=== PATIENT | male | born 1980 | race Caucasian/White ===

== ENCOUNTER 2017-03-06 10:42 | Inpatient (IN) | payer MEDICAID ==
[~2017-03-06] VITALS: Ht 170.2 cm; Wt 76.4 kg
[~2017-03-06 10:42] MED LIST: BENZ0.5T32 PO; LITH300C3 PO; RISP2 PO
[2017-03-06 11:33] VITALS: BP 146/80
[2017-03-06] MEDS ORDERED: LORazepam 2 MG/ML VIAL IM ONE (16:15)
[2017-03-06] MEDS ORDERED: DiphenhydrAMINE HCL 50 MG/ML VIAL IM ONE (16:15)
[2017-03-06] MEDS ORDERED: HALOPERIDOL LACTATE 5 MG/ML VIAL IM ONE (16:15)
[2017-03-06 16:47] VITALS: BP 116/68
[2017-03-07 06:40] VITALS: BP 107/64
[2017-03-07 08:05] LABS: BASOPHILS # (AUTO) 0.04 K/uL (0.00-0.20); BASOPHILS % (AUTO) 0.7 % (0.0-2.0); EOSINOPHILS # (AUTO) 0.28 K/uL (0.00-0.70); EOSINOPHILS % (AUTO) 5.12 % (1.0-6.0); HEMATOCRIT 45.8 % (41-53); HEMOGLOBIN 15.2 g/dL (13.5-17.5); LYMPHOCYTES % (AUTO) 35.7 % (22.0-44.0); MEAN CORPUSCULAR HEMOGLOBIN 30.6 pg (26.0-34.0); MEAN CORPUSCULAR HGB CONC 33.2 G/dL (31.0-37.0); MEAN CORPUSCULAR VOLUME 92 fL (80-100); MONOCYTES # (AUTO) 0.5 K/uL (0.1-1.0); MONOCYTES % (AUTO) 8.9 % (2.0-9.0); NEUTROPHILS # (AUTO) 2.7 K/uL (1.8-7.7); NEUTROPHILS % (AUTO) 49.6 % (40.0-70.0); PLATELET COUNT (AUTO) 288 K/uL (150-450); RED BLOOD CELL COUNT(AUTO) 4.97 MIL/uL (4.50-5.90); RED CELL DISTRIBUTION WIDTH 13.5 % (11.5-14.5); WHITE BLOOD COUNT (AUTO) 5.5 K/uL (4.5-11.0)
[2017-03-07 08:41] LABS: HEMOGLOBIN A1C 5.2 % (4.5-6.2)
[2017-03-07 08:48] VITALS: BP 107/63
[2017-03-07 08:48] LABS: ALANINE AMINOTRANSFERASE 73 U/L (12-78); ALBUMIN 4.1 g/dL (3.4-5.0); ANION GAP 7 mmol/L (8-16); ASPARTATE AMINOTRANSFERASE 59 U/L (15-37); BILIRUBIN,TOTAL 2.5 mg/dL (0.1-1.0); CALCIUM, TOTAL 9.4 mg/dL (8.8-10.5); CARBON DIOXIDE 30 mmol/L (22-29); CHLORIDE 103 mmol/L (98-107); CHOL/HDL RATIO 2.3 (4.2-7.3); CREATININE 1.11 mg/dL (0.60-1.30); GLOMERULAR FILTR. RATE CALC > 60 mL/min (>60); SODIUM SERUM 140 mmol/L (136-145); THYROID STIMULATING HORMONE 0.49 uIU/mL (0.36-3.74); TOTAL PROTEIN, SERUM 7.6 g/dL (6.4-8.2); UREA NITROGEN, BLOOD 20 mg/dL (7-18)
[2017-03-07] MEDS: ARIPiprazole 10 MG TABLET PO SCH (09:15)
[2017-03-07] MEDS: LORazepam 2 MG TABLET PO PRN ×2 (09:15→16:06)
[2017-03-07 16:00] VITALS: BP 129/68
[2017-03-07] MEDS: HALOPERIDOL 5 MG TABLET PO PRN (16:06)
[2017-03-08 06:07] VITALS: BP 104/69
[2017-03-08 08:00] VITALS: BP 113/71
[2017-03-08] MEDS: ARIPiprazole 10 MG TABLET PO SCH (10:07)
[2017-03-08] MEDS: LORazepam 2 MG TABLET PO PRN ×3 (10:07→20:27)
[2017-03-08 11:07] VITALS: BP 117/75
[2017-03-08 16:00] VITALS: BP 127/77
[2017-03-08] MEDS: HALOPERIDOL 5 MG TABLET PO PRN (16:08)
[2017-03-08] MEDS: ZOLPIDEM TARTRATE 10 MG TABLET PO PRN (20:27)
[2017-03-09 07:12] VITALS: BP 119/64
[2017-03-09 08:43] VITALS: BP 111/74
[2017-03-09] MEDS: ARIPiprazole 10 MG TABLET PO SCH (09:46)
[2017-03-09] MEDS: LORazepam 2 MG TABLET PO PRN ×2 (09:46→17:04)
[2017-03-09] MEDS: HALOPERIDOL 5 MG TABLET PO PRN ×2 (09:46→17:04)
[2017-03-09 16:34] VITALS: BP 142/90
[2017-03-10 06:57] VITALS: BP 126/73
[2017-03-10] MEDS: LORazepam 2 MG TABLET PO PRN ×2 (08:36→16:10)
[2017-03-10] MEDS: ARIPiprazole 10 MG TABLET PO SCH (08:36)
[2017-03-10 08:47] VITALS: BP 106/58
[2017-03-10 16:00] VITALS: BP_SYST 103; BP_SYST 131; BP_DIAS 60; BP_DIAS 67
[2017-03-10] MEDS: HALOPERIDOL 5 MG TABLET PO PRN (16:10)
[2017-03-11 06:44] VITALS: BP 110/62
[2017-03-11 08:12] VITALS: BP 116/60
[2017-03-11] MEDS: ARIPiprazole 10 MG TABLET PO SCH (08:35)
[2017-03-11 16:00] VITALS: BP 130/81
[2017-03-11] MEDS: ZOLPIDEM TARTRATE 10 MG TABLET PO PRN (21:58)
[2017-03-12 07:00] VITALS: BP 118/65
[2017-03-12] MEDS: LORazepam 2 MG TABLET PO PRN (08:59)
[2017-03-12] MEDS ORDERED: ARIPiprazole 15 MG TABLET PO SCH (09:00)
[2017-03-12 09:07] VITALS: BP 124/78
[2017-03-12] MEDS ORDERED: ARIP15TA3 PO (11:52)
== END 2017-03-12 12:45 | disposition home or self-care (01) | DRG 751 ==
LOC: B3A 11:36
PROVIDERS: ADMIT Psychiatry & Neurology Psychiatry; ATTEND Psychiatry & Neurology Psychiatry
DX: F29 Unspecified psychosis not due to a substance or known physiological condition (principal); R45.87 Impulsiveness; Z88.1 Allergy status to other antibiotic agents
CPT/HCPCS: 83036; 84439; 84443; J1200; J1630; J2060

== ENCOUNTER 2017-05-21 12:42 | Inpatient (IN) | payer MEDICAID ==
[~2017-05-21] VITALS: Ht 175.3 cm; Wt 73.0 kg
[~2017-05-21 12:42] MED LIST changes: +ARIP15TA2 PO; -BENZ0.5T32 PO; -LITH300C3 PO; -RISP2 PO
[2017-05-21 14:51] VITALS: BP 118/70
[2017-05-21] MEDS ORDERED: ZOLPIDEM TARTRATE 10 MG TABLET PO PRN (15:00)
[2017-05-21] MEDS ORDERED: LITH300C3 PO (15:27)
[2017-05-21] MEDS ORDERED: RISP.5 PO (15:27)
[2017-05-21] MEDS ORDERED: OLAN2.5T3 PO (15:27)
[2017-05-21 16:05] VITALS: BP 138/60
[2017-05-21] MEDS: LORazepam 2 MG TABLET PO PRN (17:01)
[2017-05-21] MEDS: HALOPERIDOL 5 MG TABLET PO PRN (17:01)
[2017-05-22 06:24] VITALS: BP 108/69
[2017-05-22 08:43] VITALS: BP 110/61
[2017-05-22] MEDS: LORazepam 2 MG TABLET PO PRN (09:12)
[2017-05-22] MEDS: ARIPiprazole 15 MG TABLET PO SCH (09:12)
[2017-05-22 09:14] LABS: BASOPHILS % (AUTO) 0.7 % (0.0-2.0); EOSINOPHILS % (AUTO) 7.1 % (1.0-6.0); HEMATOCRIT 43.9 % (41-53); HEMOGLOBIN 14.8 g/dL (13.5-17.5); LYMPHOCYTES # (AUTO) 2.2 K/uL (1.0-4.8); LYMPHOCYTES % (AUTO) 36.5 % (22.0-44.0); MEAN CORPUSCULAR HEMOGLOBIN 30.7 pg (26.0-34.0); MEAN CORPUSCULAR HGB CONC 33.7 G/dL (31.0-37.0); MEAN CORPUSCULAR VOLUME 91 fL (80-100); MONOCYTES # (AUTO) 0.3 K/uL (0.1-1.0); MONOCYTES % (AUTO) 4.3 % (2.0-9.0); NEUTROPHILS # (AUTO) 3.1 K/uL (1.8-7.7); NEUTROPHILS % (AUTO) 51.4 % (40.0-70.0); PLATELET COUNT (AUTO) 333 K/uL (150-450); RED BLOOD CELL COUNT(AUTO) 4.83 MIL/uL (4.50-5.90); RED CELL DISTRIBUTION WIDTH 13.6 % (11.5-14.5); WHITE BLOOD COUNT (AUTO) 6.1 K/uL (4.5-11.0)
[2017-05-22 09:30] LABS: APPEARANCE,URINE CLEAR (CLEAR); GLUCOSE, URINE (UA) NEGATIVE (NEGATIVE); KETONES,URINE NEGATIVE (NEGATIVE); LEUKOCYTE ESTERASE ,URINE NEGATIVE (NEGATIVE); OCCULT BLOOD,URINE NEGATIVE (NEGATIVE); PH,URINE 5.5 (5.0-8.0); PROTEIN,URINE NEGATIVE (NEGATIVE)
[2017-05-22 09:33] LABS: ADD UA MICROSCOPIC NO
[2017-05-22 09:37] LABS: ALANINE AMINOTRANSFERASE 48 U/L (12-78); ALBUMIN 3.6 g/dL (3.4-5.0); ANION GAP 7 mmol/L (8-16); ASPARTATE AMINOTRANSFERASE 20 U/L (15-37); BILIRUBIN,TOTAL 0.6 mg/dL (0.1-1.0); CALCIUM, TOTAL 8.8 mg/dL (8.8-10.5); CARBON DIOXIDE 28 mmol/L (22-29); CHLORIDE 105 mmol/L (98-107); CHOL/HDL RATIO 2.2 (4.2-7.3); GLOMERULAR FILTR. RATE CALC > 60 mL/min (>60); POTASSIUM 3.8 mmol/L (3.5-5.1); SODIUM SERUM 140 mmol/L (136-145); THYROID STIMULATING HORMONE 0.74 uIU/mL (0.36-3.74); UREA NITROGEN, BLOOD 11 mg/dL (7-18)
[2017-05-22 09:40] LABS: HEMOGLOBIN A1C 4.3 % (4.5-6.2)
[2017-05-22 16:00] VITALS: BP 127/86
[2017-05-23 06:49] VITALS: BP 122/81
[2017-05-23 07:55] LABS: HEPATITIS Bs ANTIGEN SCREEN P Negative (Negative); HEPATITIS C AB SCREEN >11.0 s/co ratio (0.0-0.9)
[2017-05-23 08:41] VITALS: BP 120/72
[2017-05-23] MEDS: ARIPiprazole 15 MG TABLET PO SCH (08:56)
[2017-05-23] MEDS: LORazepam 2 MG TABLET PO PRN ×2 (08:56→16:50)
[2017-05-23 16:33] VITALS: BP 114/63
[2017-05-23] MEDS: HALOPERIDOL 5 MG TABLET PO PRN (16:50)
[2017-05-24 06:40] VITALS: BP 105/65
[2017-05-24] MEDS: ARIPiprazole 15 MG TABLET PO SCH (08:39)
[2017-05-24] MEDS: LORazepam 2 MG TABLET PO PRN ×2 (08:40→16:39)
[2017-05-24] MEDS ORDERED: ACETAMINOPHEN 325 MG TABLET PO PRN (08:45)
[2017-05-24 09:43] VITALS: BP 103/54
[2017-05-24] MEDS: IBUPROFEN 600 MG TABLET PO PRN (10:54)
[2017-05-24 16:25] VITALS: BP 121/77
[2017-05-24] MEDS: HALOPERIDOL 5 MG TABLET PO PRN (16:39)
[2017-05-25 06:25] VITALS: BP 102/68
[2017-05-25 08:37] VITALS: BP 108/58
[2017-05-25] MEDS: ARIPiprazole 15 MG TABLET PO SCH (08:48)
[2017-05-25] MEDS: LORazepam 2 MG TABLET PO PRN ×2 (08:49→15:56)
[2017-05-25] MEDS: HALOPERIDOL 5 MG TABLET PO PRN (15:56)
[2017-05-25 16:13] VITALS: BP 124/69
[2017-05-25] MEDS: IBUPROFEN 600 MG TABLET PO PRN (16:49)
[2017-05-26] MEDS: LORazepam 2 MG TABLET PO PRN ×2 (08:51→16:07)
[2017-05-26] MEDS: ARIPiprazole 15 MG TABLET PO SCH (08:51)
[2017-05-26 08:55] VITALS: BP 105/62
[2017-05-26 16:00] VITALS: BP 113/71
[2017-05-26] MEDS: HALOPERIDOL 5 MG TABLET PO PRN (16:07)
[2017-05-27 06:15] VITALS: BP 118/75
[2017-05-27 08:23] VITALS: BP 105/63
[2017-05-27] MEDS: LORazepam 2 MG TABLET PO PRN ×2 (08:49→16:15)
[2017-05-27] MEDS: ARIPiprazole 15 MG TABLET PO SCH (09:08)
[2017-05-27] MEDS: IBUPROFEN 600 MG TABLET PO PRN (14:16)
[2017-05-27 16:00] VITALS: BP 115/78
[2017-05-27] MEDS: HALOPERIDOL 5 MG TABLET PO PRN (16:15)
[2017-05-28 00:34] VITALS: BP 101/62
[2017-05-28 08:30] VITALS: BP 106/68
[2017-05-28] MEDS: ARIPiprazole 15 MG TABLET PO SCH (08:30)
[2017-05-28] MEDS: LORazepam 2 MG TABLET PO PRN (08:39)
[2017-05-28] MEDS: HALOPERIDOL 5 MG TABLET PO PRN (08:39)
[2017-05-28] MEDS: IBUPROFEN 600 MG TABLET PO PRN (09:51)
== END 2017-05-28 12:49 | disposition home or self-care (01) | DRG 750 ==
LOC: B3A 14:59
PROVIDERS: ADMIT Psychiatry & Neurology Child & Adolescent Psychiatry; ATTEND Psychiatry & Neurology Child & Adolescent Psychiatry
DX: F25.1 Schizoaffective disorder, depressive type (principal); R45.851 Suicidal ideations; Z59.0 Homelessness; F12.90 Cannabis use, unspecified, uncomplicated; E78.5 Hyperlipidemia, unspecified; Z72.89 Other problems related to lifestyle
CPT/HCPCS: 80074; 83036; 84439; 84443

== ENCOUNTER 2017-06-25 13:37 | Emergency (ER) | payer MEDICAID ==
[~2017-06-25] VITALS: Ht 175.3 cm; Wt 68.0 kg
[2017-06-25] MEDS ORDERED: LITH300C3 PO (13:56)
[2017-06-25 15:13] LABS: BASOPHILS # (AUTO) 0.24 K/uL (0.00-0.20); BASOPHILS % (AUTO) 3.1 % (0.0-2.0); EOSINOPHILS # (AUTO) 0.13 K/uL (0.00-0.70); EOSINOPHILS % (AUTO) 1.79 % (1.0-6.0); HEMATOCRIT 44.8 % (41-53); HEMOGLOBIN 15.2 g/dL (13.5-17.5); LYMPHOCYTES # (AUTO) 2.4 K/uL (1.0-4.8); LYMPHOCYTES % (AUTO) 31.7 % (22.0-44.0); MEAN CORPUSCULAR HEMOGLOBIN 30.6 pg (26.0-34.0); MEAN CORPUSCULAR VOLUME 90 fL (80-100); MONOCYTES # (AUTO) 0.5 K/uL (0.1-1.0); NEUTROPHILS # (AUTO) 4.2 K/uL (1.8-7.7); NEUTROPHILS % (AUTO) 56.4 % (40.0-70.0); PLATELET COUNT (AUTO) 354 K/uL (150-450); RED BLOOD CELL COUNT(AUTO) 4.99 MIL/uL (4.50-5.90); RED CELL DISTRIBUTION WIDTH 13.1 % (11.5-14.5)
[2017-06-25 15:57] LABS: ANION GAP 11 mmol/L (8-16); CALCIUM, TOTAL 9.6 mg/dL (8.8-10.5); CARBON DIOXIDE 26 mmol/L (22-29); CHLORIDE 103 mmol/L (98-107); CREATININE 1.06 mg/dL (0.60-1.30); GLOMERULAR FILTR. RATE CALC > 60 mL/min (>60); GLUCOSE,RANDOM 81 mg/dL (70-110); POTASSIUM 4.3 mmol/L (3.5-5.1); SODIUM SERUM 140 mmol/L (136-145); UREA NITROGEN, BLOOD 11 mg/dL (7-18)
[2017-06-25 16:42] VITALS: BP 120/70
[2017-06-25] MEDS: HALOPERIDOL 5 MG TABLET PO ONE ×2 (18:20→18:29)
[2017-06-25] MEDS: LORazepam 1 MG TABLET PO ONE ×2 (18:21→18:28)
== END 2017-06-25 18:58 | disposition home or self-care (01) ==
LOC: EMS 13:39
DX: M79.632 Pain in left forearm (principal); F20.9 Schizophrenia, unspecified; F31.9 Bipolar disorder, unspecified; F17.210 Nicotine dependence, cigarettes, uncomplicated
CPT/HCPCS: 36415; 73090; 80048; 85025; 99285; G0480

== ENCOUNTER 2018-11-29 14:28 | Inpatient (IN) | payer MEDICAID ==
[~2018-11-29] VITALS: Ht 177.8 cm; Wt 87.5 kg
[~2018-11-29 14:28] MED LIST changes: +LITH300C3 PO
[2018-11-29] MEDS ORDERED: ZOLPIDEM TARTRATE 10 MG TABLET PO PRN (17:45)
[2018-11-29] MEDS ORDERED: TUBERCULIN, PURIFIED PROTEIN DERIVATIVE 5 TU/0.1 ML SYRINGE ID ONE (17:45)
[2018-11-29] MEDS ORDERED: MAGNESIUM HYDROXIDE SUSPENSION 30 ML UDCUP PO PRN (17:45)
[2018-11-29] MEDS ORDERED: ACETAMINOPHEN 325 MG TABLET PO PRN (17:45)
[2018-11-29] MEDS ORDERED: MAG HYDROX/AL HYDROX/SIMETH ES 30 ML SUSPENSION UDCUP PO PRN (17:45)
[2018-11-29] MEDS ORDERED: PROMETHAZINE HCL 25 MG TABLET PO PRN (17:45)
[2018-11-29] MEDS ORDERED: HydrOXYzine PAMOATE 50 MG CAPSULE PO PRN (17:45)
[2018-11-29] MEDS ORDERED: LOPERAMIDE HCL 2 MG CAPSULE PO PRN (17:45)
[2018-11-29] MEDS ORDERED: GuaiFENesin/D-METHORPHAN [SUGAR-FREE] 200-20MG/10 ML SYRUP UDCUP PO PRN (17:45)
[2018-11-29] MEDS ORDERED: DIVALPROEX SODIUM 500 MG ER TABLET PO SCH (21:00)
[2018-11-29] MEDS: THIAMINE HCL 100 MG TABLET PO SCH (21:01)
[2018-11-29] MEDS: OLANZapine 5 MG RAPDIS TABLET PO SCH (21:01)
[2018-11-29 21:51] VITALS: BP 131/77
[2018-11-30 06:40] VITALS: BP 109/62
[2018-11-30 08:28] VITALS: BP 120/63
[2018-11-30 08:52] LABS: BASOPHILS % (AUTO) 0.6 % (0.0-2.0); EOSINOPHILS % (AUTO) 4.7 % (1.0-6.0); HEMATOCRIT 41.6 % (41-53); HEMOGLOBIN 14.1 g/dL (13.5-17.5); LYMPHOCYTES # (AUTO) 2.8 K/uL (1.0-4.8); LYMPHOCYTES % (AUTO) 52.8 % (22.0-44.0); MEAN CORPUSCULAR HEMOGLOBIN 30.6 pg (26.0-34.0); MEAN CORPUSCULAR HGB CONC 33.8 G/dL (31.0-37.0); MEAN CORPUSCULAR VOLUME 90 fL (80-100); MONOCYTES # (AUTO) 0.4 K/uL (0.1-1.0); NEUTROPHILS # (AUTO) 1.8 K/uL (1.8-7.7); NEUTROPHILS % (AUTO) 33.9 % (40.0-70.0); PLATELET COUNT (AUTO) 412 K/uL (150-450); RED CELL DISTRIBUTION WIDTH 13.1 % (11.5-14.5)
[2018-11-30] MEDS: NALTREXONE HCL 50 MG TABLET PO SCH (08:57)
[2018-11-30] MEDS: FOLIC ACID 1 MG TABLET PO SCH (08:57)
[2018-11-30] MEDS: MULTIVITAMINS WITH MINERALS, THERAPEUTIC TABLET PO SCH (08:57)
[2018-11-30] MEDS: THIAMINE HCL 100 MG TABLET PO SCH ×2 (08:58→16:45)
[2018-11-30 09:11] LABS: HEMOGLOBIN A1C 5.2 % (4.5-6.2)
[2018-11-30 09:17] LABS: ALANINE AMINOTRANSFERASE 102 U/L (12-78); ALBUMIN 2.9 g/dL (3.4-5.0); ALKALINE PHOSPHATASE 71 U/L (46-116); ANION GAP 11 mmol/L (8-16); ASPARTATE AMINOTRANSFERASE 91 U/L (15-37); BILIRUBIN,TOTAL 0.4 mg/dL (0.1-1.0); CARBON DIOXIDE 24 mmol/L (22-29); CHLORIDE 108 mmol/L (98-107); CHOL/HDL RATIO 2.8 (4.2-7.3); CHOLESTEROL 169 mg/dL (131-200); CREATININE 1.01 mg/dL (0.60-1.30); FREE T4 (FREE THYROXINE) 1.36 ng/dL (0.76-1.46); GLOMERULAR FILTR. RATE CALC > 60 mL/min (>60); GLUCOSE,RANDOM 84 mg/dL (70-110); HDL CHOLESTEROL 61 mg/dL (40-60); LDL CHOL (CALC.) 87 mg/dL (0-130); POTASSIUM 3.8 mmol/L (3.5-5.1); SODIUM SERUM 143 mmol/L (136-145); THYROID STIMULATING HORMONE 0.72 uIU/mL (0.36-3.74); TOTAL PROTEIN, SERUM 6.7 g/dL (6.4-8.2); TRIGLYCERIDES 105 mg/dL (15-150); UREA NITROGEN, BLOOD 13 mg/dL (7-18)
[2018-11-30] MEDS ORDERED: HYDROCORTISONE 2.5% 30 GM OINTMENT TP PRN (11:30)
[2018-11-30 16:30] VITALS: BP 118/69
[2018-11-30] MEDS: LORazepam 2 MG TABLET PO PRN (16:45)
[2018-11-30] MEDS: OLANZapine 5 MG RAPDIS TABLET PO PRN (16:46)
[2018-11-30] MEDS: DIVALPROEX SODIUM 500 MG ER TABLET PO SCH (20:27)
[2018-11-30] MEDS: OLANZapine 5 MG RAPDIS TABLET PO SCH (20:28)
[2018-12-01 06:34] VITALS: BP 122/62
[2018-12-01] MEDS: MULTIVITAMINS WITH MINERALS, THERAPEUTIC TABLET PO SCH (08:16)
[2018-12-01] MEDS: NALTREXONE HCL 50 MG TABLET PO SCH (08:16)
[2018-12-01] MEDS: FOLIC ACID 1 MG TABLET PO SCH (08:16)
[2018-12-01] MEDS: THIAMINE HCL 100 MG TABLET PO SCH ×2 (08:16→16:32)
[2018-12-01] MEDS: OLANZapine 5 MG RAPDIS TABLET PO PRN (08:16)
[2018-12-01] MEDS: LORazepam 2 MG TABLET PO PRN (08:16)
[2018-12-01 08:30] VITALS: BP 133/68
[2018-12-01] MEDS ORDERED: DIVA500T52 PO (13:53)
[2018-12-01] MEDS ORDERED: NALT50TA PO (13:53)
[2018-12-01] MEDS ORDERED: OLAN10TA22 PO (13:53)
[2018-12-01 16:32] VITALS: BP 141/81
[2018-12-01] MEDS: DIVALPROEX SODIUM 500 MG ER TABLET PO SCH (20:16)
[2018-12-01] MEDS ORDERED: OLANZapine 10 MG RAPDIS TABLET PO SCH (21:00)
[2018-12-02 05:56] VITALS: BP 118/64
[2018-12-02] MEDS: THIAMINE HCL 100 MG TABLET PO SCH (08:57)
[2018-12-02] MEDS: FOLIC ACID 1 MG TABLET PO SCH (08:57)
[2018-12-02] MEDS: NALTREXONE HCL 50 MG TABLET PO SCH (08:58)
[2018-12-02] MEDS: MULTIVITAMINS WITH MINERALS, THERAPEUTIC TABLET PO SCH (08:58)
== END 2018-12-02 14:30 | disposition home or self-care (01) | DRG 750 ==
LOC: B3A 17:37
PROVIDERS: ADMIT Psychiatry & Neurology Psychiatry; ATTEND Psychiatry & Neurology Psychiatry
DX: F25.9 Schizoaffective disorder, unspecified (principal); Z59.0 Homelessness; B19.20 Unspecified viral hepatitis C without hepatic coma; F15.90 Other stimulant use, unspecified, uncomplicated; F60.0 Paranoid personality disorder; L40.9 Psoriasis, unspecified; Z79.899 Other long term (current) drug therapy; Z91.19 Patient's noncompliance with other medical treatment and regimen
CPT/HCPCS: 83036; 84439; 84443; 86592

== ENCOUNTER 2019-11-04 04:50 | Emergency (ER) | payer SELFPAY ==
[~2019-11-04] VITALS: Ht 180.3 cm; Wt 90.9 kg
[~2019-11-04 04:50] MED LIST changes: -ARIP15TA2 PO; +DIVA500T52 PO; -LITH300C3 PO; +NALT50TA PO; +OLAN10TA22 PO
[2019-11-04 05:51] LABS: BASOPHILS % (AUTO) 0.7 % (0.0-2.0); EOSINOPHILS % (AUTO) 0.7 % (1.0-6.0); HEMATOCRIT 39.4 % (41-53); HEMOGLOBIN 13.5 g/dL (13.5-17.5); LYMPHOCYTES # (AUTO) 2.2 K/uL (1.0-4.8); LYMPHOCYTES % (AUTO) 21.1 % (22.0-44.0); MEAN CORPUSCULAR HEMOGLOBIN 30.6 pg (26.0-34.0); MEAN CORPUSCULAR HGB CONC 34.2 G/dL (31.0-37.0); MEAN CORPUSCULAR VOLUME 90 fL (80-100); MONOCYTES # (AUTO) 0.6 K/uL (0.1-1.0); MONOCYTES % (AUTO) 6.2 % (2.0-9.0); NEUTROPHILS # (AUTO) 7.3 K/uL (1.8-7.7); NEUTROPHILS % (AUTO) 71.3 % (40.0-70.0); PLATELET COUNT (AUTO) 422 K/uL (150-450); RED CELL DISTRIBUTION WIDTH 13.4 % (11.5-14.5)
[2019-11-04 06:02] LABS: ANION GAP 5 mmol/L (8-16); CALCIUM, TOTAL 9.3 mg/dL (8.8-10.5); CARBON DIOXIDE 28 mmol/L (22-29); CHLORIDE 104 mmol/L (98-107); CREATININE 1.02 mg/dL (0.60-1.30); GLOMERULAR FILTR. RATE CALC > 60 mL/min (>60); GLUCOSE,RANDOM 91 mg/dL (70-110); POTASSIUM 3.7 mmol/L (3.5-5.1); SODIUM SERUM 137 mmol/L (136-145); UREA NITROGEN, BLOOD 11 mg/dL (7-18)
[2019-11-04 06:08] LABS: ALANINE AMINOTRANSFERASE 81 U/L (12-78); ALBUMIN 3.6 g/dL (3.4-5.0); ALKALINE PHOSPHATASE 88 U/L (46-116); ASPARTATE AMINOTRANSFERASE 70 U/L (15-37); BILIRUBIN,TOTAL 0.4 mg/dL (0.1-1.0); LIPASE 87 U/L (73-393); TOTAL PROTEIN, SERUM 7.5 g/dL (6.4-8.2)
[2019-11-04 06:20] LABS: VALPROIC ACID < 3 mcg/mL (50-100)
[2019-11-04 08:37] LABS: APPEARANCE,URINE CLEAR (CLEAR); BILIRUBIN,URINE NEGATIVE (NEGATIVE); GLUCOSE, URINE (UA) NEGATIVE (NEGATIVE); KETONES,URINE NEGATIVE (NEGATIVE); LEUKOCYTE ESTERASE ,URINE NEGATIVE (NEGATIVE); NITRATE,URINE NEGATIVE (NEGATIVE); OCCULT BLOOD,URINE NEGATIVE (NEGATIVE); PH,URINE 5.5 (5.0-8.0); PROTEIN,URINE NEGATIVE (NEGATIVE); UROBILINOGEN,URINE 0.2 mg/dL (<=1.0)
[2019-11-04 08:42] LABS: AMPHET/METH SCREEN,URINE POSITIVE (NEGATIVE); BARBITURATE SCREEN, URINE NEGATIVE (NEGATIVE); BENZODIAZEPINES SCREEN,URINE NEGATIVE (NEGATIVE); CANNABINOID SCREEN,URINE POSITIVE (NEGATIVE); COCAINE SCREEN,URINE NEGATIVE (NEGATIVE); METHADONE SCREEN, URINE NEGATIVE (NEGATIVE); OPIATE SCREEN,URINE NEGATIVE (NEGATIVE)
[2019-11-04 08:54] LABS: PHENCYCLIDINE SCREEN,URINE NEGATIVE (NEGATIVE)
[2019-11-04 09:15] VITALS: BP 141/83
== END 2019-11-04 09:35 | disposition home or self-care (01) ==
LOC: EMS 04:50
DX: R10.30 Lower abdominal pain, unspecified (principal); F31.9 Bipolar disorder, unspecified; F20.9 Schizophrenia, unspecified; F17.210 Nicotine dependence, cigarettes, uncomplicated; Z79.899 Other long term (current) drug therapy
CPT/HCPCS: 36415; 80053; 80164; 80307; 81002; 81003; 83690; 85025; 99285; G0480

== ENCOUNTER 2020-05-26 21:57 | Inpatient (IN) | payer MEDICAID ==
[~2020-05-26] VITALS: Ht 177.8 cm; Wt 70.2 kg
[~2020-05-26 21:57] MED LIST changes: +DIVA-80 PO; -DIVA500T52 PO
[2020-05-27] MEDS ORDERED: HALOPERIDOL 5 MG TABLET PO PRN (02:30)
[2020-05-27 02:41] VITALS: BP 104/59
[2020-05-27 08:06] VITALS: BP 112/79
[2020-05-27] MEDS ORDERED: CHLO25TA47 PO (08:50)
[2020-05-27] MEDS ORDERED: ARIP300S IM (08:50)
[2020-05-27] MEDS: DIVALPROEX SODIUM 500 MG DR TABLET PO SCH ×2 (11:15→20:33)
[2020-05-27] MEDS ORDERED: INFLUENZA VIRUS VACCINE QVS 2020-21 (6MO+)/PF 60 MCG/0.5 ML SYRINGE IM ONE (12:30)
[2020-05-27 16:08] VITALS: BP 118/79
[2020-05-27] MEDS: ZOLPIDEM TARTRATE 10 MG TABLET PO PRN (20:33)
[2020-05-27] MEDS: OLANZapine 10 MG RAPDIS TABLET PO SCH (20:33)
[2020-05-28 06:26] VITALS: BP 124/74
[2020-05-28 08:14] VITALS: BP 129/92
[2020-05-28] MEDS: DIVALPROEX SODIUM 500 MG DR TABLET PO SCH ×2 (09:00→20:35)
[2020-05-28 16:05] VITALS: BP 122/71
[2020-05-28] MEDS: OLANZapine 10 MG RAPDIS TABLET PO SCH (20:35)
[2020-05-29 06:00] VITALS: BP 125/73
[2020-05-29 08:16] VITALS: BP 114/66
[2020-05-29] MEDS: DIVALPROEX SODIUM 500 MG DR TABLET PO SCH ×2 (09:00→21:00)
[2020-05-29 16:03] VITALS: BP 104/60
[2020-05-29] MEDS: OLANZapine 10 MG RAPDIS TABLET PO SCH (21:06)
[2020-05-30 06:01] VITALS: BP 109/58
[2020-05-30 08:07] VITALS: BP 130/60
[2020-05-30] MEDS: DIVALPROEX SODIUM 500 MG DR TABLET PO SCH ×2 (08:23→20:07)
[2020-05-30 16:03] VITALS: BP 101/67
[2020-05-30] MEDS: ZOLPIDEM TARTRATE 10 MG TABLET PO PRN (20:07)
[2020-05-30] MEDS: OLANZapine 10 MG RAPDIS TABLET PO SCH (20:07)
[2020-05-31 03:46] VITALS: BP 112/62
[2020-05-31] MEDS ORDERED: CloNIDine HCL 0.1 MG TABLET PO PRN (08:00)
[2020-05-31] MEDS ORDERED: ACETAMINOPHEN 325 MG TABLET PO PRN (08:00)
[2020-05-31] MEDS ORDERED: DOCUSATE SODIUM 100 MG CAPSULE PO PRN (08:00)
[2020-05-31] MEDS ORDERED: MAG HYDROX/AL HYDROX/SIMETH ES 30 ML SUSPENSION UDCUP PO PRN (08:00)
[2020-05-31] MEDS ORDERED: NICOTINE 14 MG/24 HOUR PATCH TD PRN (08:00)
[2020-05-31] MEDS ORDERED: MAGNESIUM HYDROXIDE SUSPENSION 30 ML UDCUP PO PRN (08:00)
[2020-05-31] MEDS ORDERED: ALBUTEROL SULFATE HFA 90 MCG/PUFF 8 GM INHALER IH PRN (08:00)
[2020-05-31] MEDS ORDERED: ONDANSETRON HCL 4 MG TABLET PO PRN (08:00)
[2020-05-31] MEDS ORDERED: LOPERAMIDE HCL 2 MG CAPSULE PO PRN (08:00)
[2020-05-31] MEDS ORDERED: PETROLATUM,WHITE 28 GM JELLY TP PRN (08:00)
[2020-05-31] MEDS ORDERED: GuaiFENesin/D-METHORPHAN [SUGAR-FREE] 200-20MG/10 ML SYRUP UDCUP PO PRN (08:00)
[2020-05-31] MEDS ORDERED: IBUPROFEN 400 MG TABLET PO PRN (08:00)
[2020-05-31 08:12] VITALS: BP 119/63
[2020-05-31] MEDS: DIVALPROEX SODIUM 500 MG DR TABLET PO SCH (08:54)
[2020-05-31 16:40] VITALS: BP 120/77
[2020-05-31] MEDS: OLANZapine 10 MG RAPDIS TABLET PO SCH (20:40)
[2020-05-31] MEDS: ZOLPIDEM TARTRATE 10 MG TABLET PO PRN (20:40)
[2020-06-01 04:10] VITALS: BP 111/77
[2020-06-01 08:04] VITALS: BP 114/72
[2020-06-01 16:04] VITALS: BP 106/74
[2020-06-01] MEDS: OLANZapine 10 MG RAPDIS TABLET PO SCH (20:26)
[2020-06-02 06:32] VITALS: BP 110/73
[2020-06-02 08:47] VITALS: BP 118/66
[2020-06-02 16:07] VITALS: BP 106/66
[2020-06-02] MEDS: OLANZapine 7.5 MG TABLET PO SCH (20:46)
[2020-06-03 05:38] VITALS: BP 112/74
[2020-06-03 08:16] VITALS: BP 127/84
[2020-06-03 16:09] VITALS: BP 113/73
[2020-06-03] MEDS: OLANZapine 7.5 MG TABLET PO SCH (20:51)
[2020-06-04 04:02] VITALS: BP 123/78
[2020-06-04 08:25] VITALS: BP 118/68
[2020-06-04 16:08] VITALS: BP 113/76
[2020-06-04] MEDS: OLANZapine 7.5 MG TABLET PO SCH (20:32)
[2020-06-05 03:37] VITALS: BP 112/70
[2020-06-05 09:30] VITALS: BP 110/68
[2020-06-05 16:19] VITALS: BP 113/80
[2020-06-05] MEDS: OLANZapine 7.5 MG TABLET PO SCH (20:04)
[2020-06-06 05:40] VITALS: BP 109/66
[2020-06-06 08:00] VITALS: BP 102/68
[2020-06-06 16:29] VITALS: BP 96/55
[2020-06-06 17:30] VITALS: BP 106/66
[2020-06-06] MEDS: OLANZapine 7.5 MG TABLET PO SCH (20:35)
[2020-06-06] MEDS: ZOLPIDEM TARTRATE 10 MG TABLET PO PRN (21:56)
[2020-06-07 06:27] VITALS: BP 126/75
[2020-06-07] MEDS ORDERED: OLAN7.5T2 PO (07:26)
[2020-06-07 08:18] VITALS: BP 108/64
== END 2020-06-07 11:05 | disposition home or self-care (01) | DRG 750 ==
LOC: B3A 05-27 02:00
DX: F25.0 Schizoaffective disorder, bipolar type (principal); Z59.0 Homelessness; F15.90 Other stimulant use, unspecified, uncomplicated
CPT/HCPCS: Z7610

== ENCOUNTER 2020-05-26 23:36 | Emergency (ER) | payer MEDICAID, OTHER ==
[~2020-05-26] VITALS: Ht 172.7 cm; Wt 72.7 kg
[2020-05-26 23:53] LABS: COVID AG,FIA SOURCE NASOPHARYNGEAL
[2020-05-27] MEDS ORDERED: OLANZapine 5 MG TABLET PO ONE (00:15)
[2020-05-27] MEDS ORDERED: LORazepam 2 MG TABLET PO ONE (00:15)
[2020-05-27 00:43] LABS: BASOPHILS % (AUTO) 1.1 % (0.0-2.0); EOSINOPHILS % (AUTO) 2.9 % (1.0-6.0); HEMATOCRIT 36.3 % (41-53); HEMOGLOBIN 12.2 g/dL (13.5-17.5); LYMPHOCYTES # (AUTO) 1.9 K/uL (1.0-4.8); MEAN CORPUSCULAR HEMOGLOBIN 28.8 pg (26.0-34.0); MEAN CORPUSCULAR HGB CONC 33.6 G/dL (31.0-37.0); MEAN CORPUSCULAR VOLUME 86 fL (80-100); MONOCYTES # (AUTO) 0.4 K/uL (0.1-1.0); MONOCYTES % (AUTO) 8.1 % (2.0-9.0); NEUTROPHILS # (AUTO) 2.8 K/uL (1.8-7.7); NEUTROPHILS % (AUTO) 51.9 % (40.0-70.0); PLATELET COUNT (AUTO) 421 K/uL (150-450); RED BLOOD CELL COUNT(AUTO) 4.23 MIL/uL (4.50-5.90)
[2020-05-27 00:50] LABS: ANION GAP 7 mmol/L (8-16); CALCIUM, TOTAL 8.6 mg/dL (8.8-10.5); CARBON DIOXIDE 30 mmol/L (22-29); CHLORIDE 104 mmol/L (98-107); CREATININE 0.92 mg/dL (0.60-1.30); GLOMERULAR FILTR. RATE CALC > 60 mL/min (>60); GLUCOSE,RANDOM 136 mg/dL (70-110); POTASSIUM 3.5 mmol/L (3.5-5.1); SODIUM SERUM 141 mmol/L (136-145); UREA NITROGEN, BLOOD 14 mg/dL (7-18)
[2020-05-27 01:05] LABS: ALANINE AMINOTRANSFERASE 38 U/L (12-78); ALBUMIN 3.4 g/dL (3.4-5.0); ALKALINE PHOSPHATASE 116 U/L (46-116); ASPARTATE AMINOTRANSFERASE 26 U/L (15-37); BILIRUBIN,TOTAL 0.5 mg/dL (0.1-1.0); CHOL/HDL RATIO 2.2 (4.2-7.3); CHOLESTEROL 179 mg/dL (131-200); FREE T4 (FREE THYROXINE) 1.28 ng/dL (0.76-1.46); HDL CHOLESTEROL 80 mg/dL (40-60); LDL CHOL (CALC.) 84 mg/dL (0-130); THYROID STIMULATING HORMONE 0.51 uIU/mL (0.36-3.74); TOTAL PROTEIN, SERUM 6.9 g/dL (6.4-8.2); TRIGLYCERIDES 77 mg/dL (15-150)
[2020-05-27 01:09] VITALS: BP 130/75
[2020-05-27] MEDS ORDERED: CHLO25TA47 PO (08:50)
[2020-05-27] MEDS ORDERED: ARIP300S IM (08:50)
== END 2020-05-27 01:43 | disposition home or self-care (01) ==
LOC: EMS 23:36
DX: S00.83XA Contusion of other part of head, initial encounter (principal); F17.210 Nicotine dependence, cigarettes, uncomplicated; Z20.828 Contact with and (suspected) exposure to other viral communicable diseases; F25.9 Schizoaffective disorder, unspecified; F15.10 Other stimulant abuse, uncomplicated; X58.XXXA Exposure to other specified factors, initial encounter; Y93.89 Activity, other specified; Y92.89 Other specified places as the place of occurrence of the external cause; Y99.8 Other external cause status
CPT/HCPCS: 36415; 80053; 80061; 84439; 84443; 85025; 87426; 99284; 99406; G0480